=== PATIENT | female | born 1950 | race Two or more races ===

== ENCOUNTER → 2019-08-11 | Outpatient (CLI) | payer OTHER ==
[~2019-08-11] MED LIST: AVAPRO150 MG PO
== END | disposition home or self-care (01) ==
LOC: NUCLEAR 15:00
DX: I82.402 Acute embolism and thrombosis of unspecified deep veins of left lower extremity (principal)

== ENCOUNTER → 2020-03-23 | Outpatient (CLI) | payer OTHER | END | disposition home or self-care (01) | LOC: MAMO-SONO 08:40 | PROVIDERS: ATTEND Surgery | DX: Z12.31 Encounter for screening mammogram for malignant neoplasm of breast (principal); N60.11 Diffuse cystic mastopathy of right breast; N60.12 Diffuse cystic mastopathy of left breast ==

== ENCOUNTER 2020-09-14 10:32 | Outpatient (CLI) | payer OTHER | END 2020-09-14 10:40 | disposition home or self-care (01) | LOC: NUCLEAR 10:32 | PROVIDERS: ATTEND Internal Medicine | DX: I67.2 Cerebral atherosclerosis (principal); I67.89 Other cerebrovascular disease ==

== ENCOUNTER 2020-10-17 13:50 | Outpatient (CLI) | payer OTHER | END 2020-10-17 16:25 | disposition home or self-care (01) | LOC: RAD 13:50 | PROVIDERS: ATTEND Physical Medicine & Rehabilitation | DX: M17.0 Bilateral primary osteoarthritis of knee (principal); M25.762 Osteophyte, left knee; M25.761 Osteophyte, right knee ==

== ENCOUNTER → 2021-05-17 11:48 | Outpatient (CLI) | payer OTHER | END | disposition home or self-care (01) | LOC: RAD 11:48 | PROVIDERS: ATTEND Internal Medicine Rheumatology | DX: M54.2 Cervicalgia (principal); M15.8 Other polyosteoarthritis; M47.812 Spondylosis without myelopathy or radiculopathy, cervical region ==

== ENCOUNTER 2021-06-12 07:53 | Outpatient (CLI) | payer OTHER | END 2021-06-12 08:02 | disposition home or self-care (01) | LOC: MAMO-SONO 07:53 | PROVIDERS: ATTEND Surgery | DX: N60.11 Diffuse cystic mastopathy of right breast (principal); N60.12 Diffuse cystic mastopathy of left breast; Z12.31 Encounter for screening mammogram for malignant neoplasm of breast ==

== ENCOUNTER 2021-06-20 08:00 | Outpatient (CLI) | payer OTHER | END 2021-06-20 08:03 | disposition home or self-care (01) | LOC: TOM 08:00 | PROVIDERS: ATTEND Internal Medicine | DX: R10.84 Generalized abdominal pain (principal); K57.30 Diverticulosis of large intestine without perforation or abscess without bleeding ==

== ENCOUNTER 2021-07-21 07:24 | Day surgery (SDC) | payer OTHER | END 2021-07-21 12:20 | disposition home or self-care (01) | LOC: AMB-ENDOS 07:24 | PROVIDERS: ATTEND Colon & Rectal Surgery | DX: K57.32 Diverticulitis of large intestine without perforation or abscess without bleeding (principal); K64.0 First degree hemorrhoids ==

== ENCOUNTER 2021-12-28 08:24 | Outpatient (CLI) | payer OTHER | END 2021-12-28 08:37 | disposition home or self-care (01) | LOC: MRI 08:24 → RAD 08:24 → MRI 08:37 → RAD 08:37 | PROVIDERS: ATTEND Internal Medicine | DX: M54.17 Radiculopathy, lumbosacral region (principal); E04.2 Nontoxic multinodular goiter; R10.9 Unspecified abdominal pain ==

== ENCOUNTER 2022-03-08 11:11 | Outpatient (CLI) | payer OTHER | END 2022-03-08 11:15 | disposition home or self-care (01) | LOC: SONOGRAMA 11:11 | PROVIDERS: ATTEND Pathology Anatomic Pathology & Clinical Pathology | DX: E04.2 Nontoxic multinodular goiter (principal) ==

== ENCOUNTER 2023-02-07 10:04 | Outpatient (CLI) | payer OTHER | END 2023-02-07 10:14 | disposition home or self-care (01) | LOC: MAMO-SONO 10:04 | PROVIDERS: ATTEND Internal Medicine | DX: Z12.31 Encounter for screening mammogram for malignant neoplasm of breast (principal); N63.0 Unspecified lump in unspecified breast; E04.1 Nontoxic single thyroid nodule ==

== ENCOUNTER → 2023-09-10 | Outpatient (CLI) | payer OTHER | END | disposition home or self-care (01) | LOC: NUCLEAR 07:00 | PROVIDERS: ATTEND Internal Medicine | DX: E05.00 Thyrotoxicosis with diffuse goiter without thyrotoxic crisis or storm (principal) | CPT/HCPCS: 78014; A9528 ==

== ENCOUNTER 2023-09-11 07:06 | Outpatient (CLI) | payer OTHER | END 2023-09-11 07:07 | disposition home or self-care (01) | LOC: NUCLEAR 07:06 | PROVIDERS: ATTEND Internal Medicine | DX: E05.00 Thyrotoxicosis with diffuse goiter without thyrotoxic crisis or storm (principal) | CPT/HCPCS: 78014; A9528 ==

== ENCOUNTER 2025-01-12 11:04 | Outpatient (CLI) | payer OTHER | END 2025-01-12 11:07 | disposition home or self-care (01) | LOC: MAMO-SONO 11:04 | PROVIDERS: ATTEND Internal Medicine | DX: N64.4 Mastodynia (principal); R92.8 Other abnormal and inconclusive findings on diagnostic imaging of breast; Z12.31 Encounter for screening mammogram for malignant neoplasm of breast ==

== ENCOUNTER 2025-03-25 10:52 | Outpatient (CLI) | payer OTHER | END 2025-03-25 10:57 | disposition home or self-care (01) | LOC: RAD 10:52 | PROVIDERS: ATTEND Internal Medicine | DX: M15.0 Primary generalized (osteo)arthritis (principal); M25.569 Pain in unspecified knee ==